=== PATIENT | female | born 1990 | race Caucasian/White ===

== ENCOUNTER 2017-01-19 01:00 | Inpatient (IN) | payer OTHER ==
[2017-01-19] MEDS ORDERED: LIDOCAINE HCL 50 ML VIAL PERI PRN (02:30)
[2017-01-19] MEDS ORDERED: OXYTOCIN/DEXTROSE 5%-WATER 30 UNITS/500 ML BAG IV ONE ×2 (02:30→11:08)
[2017-01-19] MEDS ORDERED: RINGERS SOLUTION,LACTATED 1,000 ML IV ONE (02:30)
[2017-01-19] MEDS: DEXTROSE 5%-LACTATED RINGERS 1,000 ML IV PRN ×2 (03:52→08:00)
[2017-01-19] MEDS ORDERED: BUPIVACAINE HCL/0.9 % NACL/PF 250 ML EP PRN (04:02)
--- NOTE | 2017-01-19 04:06 | OR ---
Anesthesia Pre Procedure Eval Date of Service: 01/19/17 Pre Procedure Evaluation: Last Vital Signs Temp 36.3 C L 06/23/16 09:51 Pulse Resp BP 132/80 06/23/16 12:14 Pulse Ox Anesthesia Pre Procedure Evaluation Heart Rate:96 Blood Pressure:151/99 Termperature:36.7C Respiratory Rate:18 SaO2:98 DATE: 01/19/2017 TIME: 0400 INDICATIONS: Active labor, labor pain PAST MEDICAL HISTORY: Multipara patient in active labor requesting labor analgesia. Patient has history of underlying hypertension without treatment. EXAM: Heart regular; lungs clear ASSESSMENT OF MEDICAL STATUS: Appropriate candidate for labor analgesia PLANNED PROCEDURE: Combination spinal epidural for labor analgesia Home Medications: HOME MEDICATIONS Pnv Cmb#21/Iron/Folic Acid [ Complete Caplet] 1 each PO DAILY 01/17/17 [ Last Taken Unknown]
[2017-01-19] MEDS ORDERED: fentaNYL CITRATE/PF 50 MCG/ML AMPUL IT SCH (04:15)
--- NOTE | 2017-01-19 04:35 | OR ---
Anesthesia Procedure Note - Anesthesia Procedure Note Date of Service: 01/19/17 Narrative: Vital Signs - Last Taken Temp 36.3 C L 06/23/16 09:51 Pulse Resp BP 132/80 06/23/16 12:14 Pulse Ox 01/19/17 04:33 ANESTHESIA PROCEDURE NOTE Date of Procedure: 01/19/2017 Time of procedure: 0400. Performed by: GERARDO Sidhu CRNA, MSN Search Analyst: Mildred Galdamez RN. Preprocedure diagnosis: Active labor, labor pain. Post procedure diagnosis: Same. Procedure: Labor Epidural Placement L3 4. Indications: Labor pain. Findings: See below. Details of the procedure: The patient was placed on the side of the bed in sitting position. The patient was prepped with DuraPrep and draped in a sterile fashion. Lidocaine 1% was infiltrated to the skin and subcutaneous tissues at the level of the L3 4 interspace. The epidural space was identified using a 18-gauge Tuohy needle with [id number] technique. Fentanyl 20 g was given intrathecally the intrathecal needle was then removed and the epidural catheter was threaded approximately 4 cm, the epidural needle was then removed, and after careful aspiration 3 mL of 1.5% lidocaine with 1-200,000 epinephrine was injected without change in maternal heart rate or sensorium. The catheter was then taped in place. EBL: Minimal. Fluids: N/A. Specimen: N/A. Post procedure condition: The patient tolerated the procedure well with good relief. No complications were noted. Thank you for this consultation. Brett Begum CRNA, ARNP, MSN
--- NOTE | 2017-01-19 08:35 | PN ---
Progess Note - Interim Narrative: 01/19/17 08:30 Patient comfortable with epidural Vital signs stable. FHT: 130 baseline, reassuring Contractions not picking up well with external monitor Cervix: /negative, AROM-clear, IUPC placed after 2 attempts. The first attempt inadvertently the catheter entered into the eye believe the placenta. Patient had a lemon size clot. Minimal bleeding now. Impression: Intrauterine at 37-3/7 weeks in labor Plan: Consider augmenting with Pitocin if no further cervical change.
--- NOTE | 2017-01-19 11:07 | OR ---
Operative Report - Dictated Report Narrative: Spontaneous vaginal delivery of viable female at 1043 on 01/19/2017 with Apgars 8 and 9, weighing 2630 g in STEFFANIE position with nuchal cord 1- reduced on perineum. Cord clamping delayed approximately 1 minute Placenta delivered complete, intact, with three vessel cord Estimated blood loss: less than 50 ml Lacerations: None History for MU Definition: * The number of deliveries resulting in a live the patient experienced prior to current hospitalization * The previous delivery of live twins or any live multiple gestation is considered one live event. *If primagravida or nulliparous is documented select zero for the number of previous live births. Live Events: 3
[2017-01-19] MEDS ORDERED: BISACODYL 10 MG SUPP.RECT RC PRN (11:08)
[2017-01-19] MEDS ORDERED: oxyCODONE HCL/ACETAMINOPHEN 1 TAB TABLET PO PRN (11:08)
[2017-01-19] MEDS ORDERED: BENZOCAINE/MENTHOL 81 SPRAY CAN TP PRN (11:08)
[2017-01-19] MEDS ORDERED: SENNOSIDES 8.6 MG TABLET PO PRN (11:08)
[2017-01-19] MEDS ORDERED: HYDROCORTISONE 30 APPL TUBE TP PRN (11:08)
[2017-01-19] MEDS ORDERED: GLYCERIN/WITCH HAZEL LEAF 40 APPL BOX TP PRN (11:08)
[2017-01-19] MEDS ORDERED: OXYTOCIN 10 UNITS/ML SYRG IM STA (11:12)
[2017-01-19] MEDS: IBUPROFEN 800 MG TABLET PO PRN ×2 (16:25→23:19)
[2017-01-19] MEDS: DOCUSATE SODIUM 100 MG CAPSULE PO SCH (21:13)
[2017-01-19] MEDS: oxyCODONE HCL/ACETAMINOPHEN 1 TAB TABLET PO PRN (21:15)
[2017-01-20] MEDS: oxyCODONE HCL/ACETAMINOPHEN 1 TAB TABLET PO PRN ×5 (01:33→21:45)
[2017-01-20] MEDS: IBUPROFEN 800 MG TABLET PO PRN ×3 (07:42→21:45)
[2017-01-20] MEDS: DOCUSATE SODIUM 100 MG CAPSULE PO SCH ×3 (07:43→21:20)
[2017-01-20] MEDS: PRENATAL VIT#96/FERROUS FUM/FA 1 TAB TABLET PO SCH (10:27)
--- NOTE | 2017-01-20 13:00 | PN ---
Subjective - Date and Time Seen Date: 01/20/17 Time: 13:00 Objective - Vitals Vitals: Last Vital Signs Temp 36.2 C L 01/20/17 11:52 Pulse 81 01/20/17 11:52 Resp 16 01/20/17 11:52 BP 120/76 01/20/17 11:52 Pulse Ox 96 01/20/17 11:52 Patient denies complaints. Lochia wnl Abdomen - soft, nontender Uterus - firm, at umbilicus - 1 No calf tenderness Impression: day #1 - s/p spontaneous vaginal delivery. Plan: Continue routine care Cauti Physician Documentation - Urinary Catheter Management Uretheral ([place]) Date of Insertion: 01/19/17 Time of Insertion: 05:00 Date of Removal: 01/19/17 Time of Removal: 10:39
[2017-01-21] MEDS: IBUPROFEN 800 MG TABLET PO PRN (05:27)
--- NOTE | 2017-01-21 09:12 | PN ---
Subjective - Date and Time Seen Date: 01/21/17 Time: 09:12 Objective - Vitals Vitals: Last Vital Signs Temp 36.9 C 01/21/17 07:12 Pulse 73 01/21/17 07:12 Resp 16 01/21/17 07:12 BP 127/81 01/21/17 07:12 Pulse Ox 96 01/21/17 07:12 Patient denies complaints. Lochia wnl Abdomen - soft, nontender Uterus - firm, at umbilicus - 2 No calf tenderness Impression: day #2 - s/p spontaneous vaginal delivery. Plan: Routine discharge instructions Cauti Physician Documentation - Urinary Catheter Management Uretheral ([place]) Date of Insertion: 01/19/17 Time of Insertion: 05:00 Date of Removal: 01/19/17 Time of Removal: 10:39
[2017-01-21] MEDS: PRENATAL VIT#96/FERROUS FUM/FA 1 TAB TABLET PO SCH (09:33)
[2017-01-21] MEDS: DOCUSATE SODIUM 100 MG CAPSULE PO SCH (09:34)
[2017-01-21 11:31] VITALS: BP 137/93
== END 2017-01-21 12:03 | disposition home or self-care (01) | DRG 774 ==
LOC: OBCLINIC 01:00 → OB 02:13
PROVIDERS: ADMIT Obstetrics & Gynecology; ATTEND Obstetrics & Gynecology
PROC: 10E0XZZ Delivery of Products of Conception, External Approach (ICD-10-PCS; principal; 2017-01-19)
PROC: 10907ZC Drainage of Amniotic Fluid, Therapeutic from Products of Conception, Via Natural or Artificial Opening (ICD-10-PCS; 2017-01-19)
PROC: 4A1HXCZ Monitoring of Products of Conception, Cardiac Rate, External Approach (ICD-10-PCS; 2017-01-19)
PROC: 3E0S3CZ (ICD-10-PCS; 2017-01-19)
DX: O99.02 Anemia complicating childbirth (principal); O10.92 Unspecified pre-existing hypertension complicating childbirth; D50.8 Other iron deficiency anemias; O69.81X0 Labor and delivery complicated by cord around neck, without compression, not applicable or unspecified; Z3A.37 37 weeks gestation of pregnancy; Z37.0 Single live birth

== ENCOUNTER 2017-02-17 08:35 | Day surgery (SDC) | payer OTHER ==
[~2017-02-17 08:35] MED LIST: RINGERS SOLUTION,LACTATED 1,000 ML IV PRN
--- NOTE | 2017-02-17 10:40 | OR ---
Operative Report - Dictated Report Narrative: DATE OF PROCEDURE: 02/17/2017 INDICATION: 26 year old female desires permanent sterilization by removal of both fallopian tubes PREOPERATIVE DIAGNOSIS: Multiparity, desires permanent sterilization POSTOPERATIVE DIAGNOSIS: Multiparity, desires permanent sterilization OPERATION: Laparoscopic bilateral salpingectomy SURGEON: Tommy Ruiz D.O. NUTRITION MANAGER: None ANESTHESIA: General ESTIMATED BLOOD LOSS: Minimal FLUID REPLACEMENT: 700 mL URINE OUTPUT: Not measured FINDINGS: Normal uterus, tubes, and ovaries. SPECIMEN(S): Fallopian tubes DRAINS: none TECHNIQUE: The patient was taken to the operating room and placed in dorsal lithotomy position after adequate general anesthesia was obtained. The anterior lip of the cervix was grasped with a long Allis clamp and a uterine manipulator was inserted into the cervical canal and attached to the Allis clamps as a means to manipulate the uterus. Bladder was drained prior to patient entering the OR. Gloves were changed and attention was turned to the abdomen where the umbilicus and suprapubic region were injected with a 1% lidocaine epinephrine was solution. A scalpel was used to score the skin and a 5 mm non-bladed trocar was inserted via direct technique under direct visualization. Pneumoperitoneum was created with CO2 gas. A 5 mm non-bladed trocar was inserted suprapubically and one in the left lower quadrant in a similar fashion. Through these 3 ports the surgery was carried out with findings as noted above. The right fallopian tube was identified and followed out to the fimbriated end. The fallopian tube was coagulated with the Kleppinger's approximately 2 cm from the cornual region and along the mesosalpinx. The tube was then excised with laparoscopic scissors and removed through the 5 mm port. The exact same was done on the patient's left side. The CO2 gas was removed from the abdominal cavity. Trochars were removed under direct visualization. The skin incisions were closed with 4-0 Monocryl and Dermabond. Instruments were removed from the cervix and vagina. Sponge, lap, instrument, and needle count were correct x 2. DISPOSITION: The patient was awakened and transferred to post anesthesia care unit in good condition.
[2017-02-17] MEDS ORDERED: oxyCODONE HCL/ACETAMINOPHEN 1 TAB TABLET PO PRN (11:24)
[2017-02-17] MEDS ORDERED: MORPHINE SULFATE 2 MG/ML DISP.SYRIN IV PRN (11:24)
[2017-02-17] MEDS ORDERED: IBUPROFEN 800 MG TABLET PO PRN (11:25)
[2017-02-17 12:36] VITALS: BP 119/81
== END 2017-02-17 08:36 | disposition home or self-care (01) ==
LOC: AMB 08:35
PROVIDERS: ATTEND Obstetrics & Gynecology
PROC: 0UT74ZZ Resection of Bilateral Fallopian Tubes, Percutaneous Endoscopic Approach (ICD-10-PCS; principal; 2017-02-17 09:30)
DX: Z30.2 Encounter for sterilization (principal); I10 Essential (primary) hypertension; D64.9 Anemia, unspecified; Z87.891 Personal history of nicotine dependence; Z68.39 Body mass index [BMI] 39.0-39.9, adult

== ENCOUNTER 2017-05-19 04:42 | Emergency (ER) | payer OTHER ==
--- NOTE | 2017-05-19 04:57 | ERNOTE ---
Time Seen by Provider: 05/19/17 04:50 Stated Complaint: cough/URI Presenting Symptoms:: cough Exam Limitations: no limitations Immunizations: IMMUNIZATION HX Immunizations Up to Date Yes History of Influenza Vaccine No Hx Pneumococcal Vaccination No Allergies/Adverse Reactions: Allergies Penicillins Allergy (Verified 05/19/17 04:48) Hives red dye Allergy (Verified 05/19/17 04:48) Vomiting rash Home Medications: HOME MEDICATIONS Cetirizine HCl [Zyrtec] 10 mg PO DAILY 02/09/17 [Last Taken Unknown] Benzonatate [Tessalon Perle] 100 mg PO QID PRN #20 capsule 05/19/17 [Last Taken Unknown] - History of Present Ilness Narrative: Pt has had a cough for a week and increased shortness of breath for the past 2 days Timing: getting worse Severity: moderate Frequency/Possible Cause: Reports: no prior episodes Modifying Factors - Improves: Reports: rest Modifying Factors - Worsens: Reports: activity, coughing Associated Symptoms: Reports: shortness of breath Review of Systems - Review of Systems Constitutional: Present: fatigue. Absent: fever, chills EYE: Present: no symptoms reported ENT: Present: nose congestion Respiratory: Present: See HPI Cardiology: Present: no symptoms reported Gastrointestinal/Abdominal: Present: no symptoms reported Genitourinary: Present: no symptoms reported Musculoskeletal: Present: no symptoms reported Skin: Present: no symptoms reported Neurological: Present: no symptoms reported - Patient's Past Medical History Patient History - Medical: Anemia, Anxiety, Depression, Headache, Obesity, Other Patient History - Cardiac/Respiratory: Hypertension Patient History - Cancer: No Hx of Cancer Patient History - Surgical Procedures: T & A Patient History - Other: None LMP (Calendar): 09/25/14 - Family History Mother Family History - Medical: Anxiety, Depression, Other Family History - Cardiac/Respiratory: No pertinent hx Family History - Cancer: No pertinent family hx Father Family History - Medical: Diabetes Type 2 Family History - Cardiac/Respiratory: Hypertension Family History - Cancer: No pertinent family hx Grandfather-Paternal Family History - Medical: , No pertinent hx Family History - Cardiac/Respiratory: Hypertension Family History - Cancer: No pertinent family hx Grandmother-Paternal Family History - Cardiac/Respiratory: Hypertension Grandfather-Maternal Family History - Medical: Other Family History - Cardiac/Respiratory: No pertinent hx Family History - Cancer: No pertinent family hx - Social History Living Situations: home Abuse History: No History of abuse Psych History: Hx of Anxiety, Hx of Depression Does anyone smoke in the home?: No Smoking Status: Never smoker Alcohol Use: rarely Drug Use: none - Immunizations Immunizations Up to Date: Yes Hx Pneumococcal Vaccination: No History of Influenza Vaccine: No Physical Exam - Physical Exam General Appearance: Present: wd/wn, alert, mild distress Head Exam: Present: normal inspection, no evidence of injury Ears, Nose, Throat: Present: nasal congestion - pale, sinus pain/drainage - clear d/c Neck: Present: normal inspection, nontender Cardiovascular/Chest: Present: regular rate, rhythm, no murmur Back Exam: Present: normal inspection, normal range of motion, no vertebral tenderness Extremity Exam: Present: normal inspection, normal range of motion Neurological Exam: Present: alert, oriented, normal mood/affect, no motor/ sensory deficits Skin Exam: Present: normal color, warm/dry Lymphatic Exam: Present: no adenopathy ED Progress - Results and Orders Patient's Lab Results:: I have reviewed the patient's lab results. Results and Orders: Laboratory Tests 05/19/17 04:54 WBC 9.7 Hgb 12.5 Hct 37.4 Plt Count 299 Eosinophils % 16.2 H - Vital Signs Patient's Vital Signs:: I have reviewed the patient's vital signs. Vital Signs: Vital Signs 05/19/17 04:45 Temperature 36.4 C L Pulse Rate 107 H Respiratory 22 H Rate Blood Pressure 117/76 O2 Sat by Pulse 97 Oximetry - X-Ray X-Ray #1 X-Ray: chest Interpretation: Interp. by me X-ray Comments: no infiltrate or effusion - Progress/Reassessment Chief Complaint: Upper Respiratory Symptoms Departure - Departure Clinical Impression: Bronchitis Disposition: Home self-care Condition: Good Instructions: Acute Bronchitis, [id number] Prescriptions: Benzonatate [Tessalon Perle] 100 mg PO QID PRN #20 capsule PRN Reason: Cough
[2017-05-19 05:34] LABS: Hematocrit 37.4 % (37.0-47.0); Hemoglobin 12.5 gm/dL (12.5-16.0); Mean Cell Volume 83.9 fl (78-100); Mean Corpuscular Hgb Conc 33.4 g/dl (32-36); Mean Platelet Volume 10.4 fl (6.0-9.5); Neutrophil # 4.2 K/mm3 (1.3-6.0); Neutrophil % 43.1 % (42-75.0); Platelet Count 299 K/mm3 (150-450); Red Blood Count 4.46 M/mm3 (4.2-5.4); Red Cell Distribution Width 14.1 % (11.5-14.0); White Blood Count 9.7 K/mm3 (4.0-10.5)
[2017-05-19] MEDS ORDERED: METHYLPREDNISOLONE ACETATE 80 MG/ML VIAL IM ONE (05:51)
[2017-05-19] MEDS ORDERED: DEXAMETHASONE SOD PHOSPHATE 10 MG/ML VIAL IM ONE (05:51)
[2017-05-19] MEDS ORDERED: DEXAMETHASONE SOD PHOSPHATE 10 MG/ML VIAL ONE (05:53)
[2017-05-19] MEDS ORDERED: METHYLPREDNISOLONE ACETATE 80 MG/ML VIAL ONE (05:54)
[2017-05-19 06:06] VITALS: BP 130/59
== END 2017-05-19 06:04 | disposition home or self-care (01) ==
LOC: ER 04:42
DX: J40 Bronchitis, not specified as acute or chronic (principal)

== ENCOUNTER 2017-07-22 15:03 | Emergency (ER) | payer OTHER ==
[2017-07-22] MEDS ORDERED: KETOROLAC TROMETHAMINE 30 MG/ML VIAL IV ONE (15:42)
[2017-07-22] MEDS ORDERED: METOCLOPRAMIDE HCL 5 MG/ML VIAL IV ONE (15:42)
[2017-07-22] MEDS ORDERED: NORMAL SALINE 1,000 ML IV PRN (15:42)
--- NOTE | 2017-07-22 15:47 | ERNOTE ---
Medical Problem HPI - General Chief Complaint: Nausea/Vomiting Time Seen by Provider: 07/22/17 15:35 Source: patient Exam Limitations: no limitations - Immun/Allergies/Home Medications Immunizations: IMMUNIZATION HX Immunizations Up to Date Yes History of Influenza Vaccine No Hx Pneumococcal Vaccination No Allergies/Adverse Reactions: Allergies Penicillins Allergy (Verified 07/22/17 15:13) Hives red dye Allergy (Verified 07/22/17 15:13) Vomiting rash Home Medications: HOME MEDICATIONS Ondansetron [Zofran Odt] 4 mg PO Q4H PRN #10 tab 07/22/17 [Last Taken Unknown] - History of Present History Narrative: Patient felt well this morning, had a doughnut around 08:00. At 11:00 she started to vomit, has been vomiting every time she tries to drink anything, denies any abdominal pain, had a watery bowl movement yesterday, no BM yet today , no sick exposure. After vomiting for a while she started to have a headache, bilateral temporal, aching, slightly light sensitive Date (Duration): 07/22/17 Time (Timing): 11:00 Review of Systems - Review of Systems Constitutional: Absent: recent illness, fever EYE: Absent: vision changes ENT: Absent: nose congestion, sore throat Respiratory: Absent: shortness of breath Cardiology: Present: chest pain - burning since vomiting started Gastrointestinal/Abdominal: Present: See HPI, nausea, vomiting. Absent: diarrhea, abdominal pain Genitourinary: Present: no symptoms reported Neurological: Present: headache. Absent: dizziness/light-headedness, weakness, numbness - Patient's Past Medical History Patient History - Medical: Anemia, Anxiety, Depression, Headache, Obesity, Other Patient History - Cardiac/Respiratory: Hypertension Patient History - Cancer: No Hx of Cancer Patient History - Surgical Procedures: T & A Patient History - Other: None LMP (females 10-50): last week - Family History Mother Family History - Medical: Anxiety, Depression, Other Family History - Cardiac/Respiratory: No pertinent hx Family History - Cancer: No pertinent family hx Father Family History - Medical: Diabetes Type 2 Family History - Cardiac/Respiratory: Hypertension Family History - Cancer: No pertinent family hx Grandfather-Paternal Family History - Medical: , No pertinent hx Family History - Cardiac/Respiratory: Hypertension Family History - Cancer: No pertinent family hx Grandmother-Paternal Family History - Cardiac/Respiratory: Hypertension Grandfather-Maternal Family History - Medical: Other Family History - Cardiac/Respiratory: No pertinent hx Family History - Cancer: No pertinent family hx - Social History Living Situations: home Abuse History: No History of abuse Psych History: Hx of Anxiety, Hx of Depression Smoking Status: Current some day smoker Have you smoked in the past 12 months: Yes Alcohol Use: none Drug Use: none - Immunizations Immunizations Up to Date: Yes Hx Pneumococcal Vaccination: No History of Influenza Vaccine: No Physical Exam - Physical Exam General Appearance: Present: wd/wn, alert, no apparent distress Head Exam: Present: normal inspection, no evidence of injury Eye Exam: Normal inspection: bilateral, PERRL: bilateral Respiratory: Present: no respiratory distress, normal breath sounds, no accessory muscle use, lungs clear Cardiovascular/Chest: Present: regular rate, rhythm, no murmur Gastrointestinal/Abdominal: Present: normal bowel sounds, nontender, nondistended, soft Neurological Exam: Present: alert, oriented, normal mood/affect, no motor/ sensory deficits Skin Exam: Present: normal color, warm/dry ED Progress - Vital Signs Patient's Vital Signs:: I have reviewed the patient's vital signs. Vital Signs: Vital Signs 07/22/17 15:10 Temperature 36.8 C Pulse Rate 92 Respiratory 16 Rate Blood Pressure 147/98 O2 Sat by Pulse 98 Oximetry - Progress/Reassessment Chief Complaint: Nausea/Vomiting Progress Note-Subjective: 07/22/17 17:23 headache resolved, no vomiting, tolerated ice chips Departure Clinical Impression: Gastritis Qualifiers: Gastritis type: unspecified gastritis Chronicity: acute Gastritis bleeding: without bleeding Qualified Code(s): K29.00 - Acute gastritis without bleeding - Departure Disposition: Home self-care Condition: Good Instructions: Viral Gastroenteritis, Adult, [id number] Additional Instructions: follow up with your doctor if not better in 2-3 days Prescriptions: Ondansetron [Zofran Odt] 4 mg PO Q4H PRN #10 tab PRN Reason: Nausea And Vomiting
[2017-07-22] MEDS ORDERED: KETOROLAC TROMETHAMINE 30 MG/ML VIAL ONE (15:50)
[2017-07-22] MEDS ORDERED: METOCLOPRAMIDE HCL 5 MG/ML VIAL ONE (15:51)
[2017-07-22 16:32] VITALS: BP 130/60
== END 2017-07-22 17:39 | disposition home or self-care (01) ==
LOC: ER 15:03
DX: K29.00 Acute gastritis without bleeding (principal); F17.200 Nicotine dependence, unspecified, uncomplicated